=== PATIENT | male | born 1975 | race Caucasian/White ===

== ENCOUNTER 2017-06-22 14:05 | Emergency (ER) | payer MEDICAID ==
[~2017-06-22] VITALS: Ht 157.5 cm; Wt 98.1 kg
[2017-06-22 14:08] VITALS: BP 117/70
[2017-06-22] MEDS ORDERED: NEOMYCIN/POLYMYXIN/BACITRACIN 0.9 GM/1 PKT TP ONE (14:25)
[2017-06-22] MEDS ORDERED: LIDOCAINE 1% 500 MG/50 ML VIAL INJ ONE (14:25)
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
[2017-06-22] MEDS ORDERED: LIDOCAINE 1% ED 50 ML ONE (14:43)
[2017-06-22 14:55] VITALS: BP 120/73
--- NOTE | 2017-06-22 14:55 | NUR ---
Patient discharged with v/s stable. Written and verbal after care instructions given and explained. Patient alert, oriented and verbalized understanding of instructions. Ambulatory with steady gait. All questions addressed prior to discharge. ID band removed. Patient advised to follow up with PMD. Rx of IBU 800 MG given. Patient educated on indication of medication including possible reaction and side effects. Opportunity to ask questions provided and answered.
== END 2017-06-22 14:45 | disposition home or self-care (01) ==
LOC: MED 14:05
DX: S61.412A Laceration without foreign body of left hand, initial encounter (principal); X58.XXXA Exposure to other specified factors, initial encounter; Y93.89 Activity, other specified; Y92.89 Other specified places as the place of occurrence of the external cause; Y99.8 Other external cause status
CPT/HCPCS: 12001; 90471; 90715; 99283; J2001

== ENCOUNTER 2019-07-12 17:39 | Emergency (ER) | payer SELFPAY ==
[~2019-07-12] VITALS: Ht 154.9 cm; Wt 95.3 kg
[2019-07-12 17:44] VITALS: BP 139/90
[2019-07-12] MEDS ORDERED: KETOROLAC 60 MG/2 ML VIAL IM ONE (17:55)
[2019-07-12] MEDS ORDERED: MORPHINE SULFATE 4 MG/ML SYR IM ONE (19:05)
[2019-07-12 19:32] VITALS: BP 120/77
== END 2019-07-12 19:32 | disposition home or self-care (01) ==
LOC: MED 17:39
DX: S00.03XA Contusion of scalp, initial encounter (principal); M54.5 Low back pain; Z98.890 Other specified postprocedural states; W19.XXXA Unspecified fall, initial encounter; Y93.89 Activity, other specified; Y92.89 Other specified places as the place of occurrence of the external cause; Y99.8 Other external cause status
CPT/HCPCS: 96372; 99283; J1885; J2270

== ENCOUNTER 2019-08-01 20:50 | Emergency (ER) | payer OTHER ==
[~2019-08-01] VITALS: Ht 154.9 cm; Wt 104.9 kg
[2019-08-01 21:00] VITALS: BP 132/80
--- NOTE | 2019-08-01 21:03 | NUR ---
TO LOBBY A/W BED AMBULATORY WITH CANE
--- NOTE | 2019-08-01 22:23 | NUR ---
PT AMBULATED TO ER BED 03
--- NOTE | 2019-08-01 22:52 | NUR ---
SITTING UP IN BED WITH FRIEND SITTING AT BEDSIDE. PT STATES PAIN IS TOLERABLE AT THIS TIME AND IS MORE CONCERNED ABOUT GETTING MEDICATIONS REFILLED.
[2019-08-01 23:15] VITALS: BP 118/61
--- NOTE | 2019-08-01 23:15 | NUR ---
Patient discharged with v/s stable. Written and verbal after care instructions given and explained. Patient alert, oriented and verbalized understanding of instructions. Ambulatory with cane assistance. All questions addressed prior to discharge. ID band removed. Patient advised to follow up with PMD. Rx of Motrin and Tramadol and Zofran given. Patient educated on indication of medication including possible reaction and side effects. Opportunity to ask questions provided and answered.
== END 2019-08-02 04:12 | disposition home or self-care (01) ==
LOC: MED 20:50
DX: S09.90XA Unspecified injury of head, initial encounter (principal); V89.9XXA Person injured in unspecified vehicle accident, initial encounter; Y93.89 Activity, other specified; Y92.89 Other specified places as the place of occurrence of the external cause; Y99.8 Other external cause status
CPT/HCPCS: 70450; 99284

== ENCOUNTER 2022-04-29 09:53 | Emergency (ER) | payer SELFPAY ==
[~2022-04-29] VITALS: Ht 152.4 cm; Wt 103.9 kg
[2022-04-29 10:28] VITALS: BP 116/70
--- NOTE | 2022-04-29 10:30 | NUR ---
PT AMBULATED WITH STEADY GAIT TO THE [facility]
--- NOTE | 2022-04-29 11:14 | NUR ---
ESTHELA BLACKWOOD IN TRIAGE FOR EVAL
--- NOTE | 2022-04-29 11:18 | NUR ---
PT AMBULATED TO BED 12
--- NOTE | 2022-04-29 11:35 | NUR ---
46/M PRESENTS TO ED WITH C/O UMBILICAL PAIN, PATIENT REPORTS HAVING UMBILLICAL HERNIA FOR "YEARS" BUT STATES HE FEELS THE PAIN HAS WORSENED IN THE LAST TWO WEEKS. PATIENT DENIES RECENT INJURY OR TRAUMA, DENIES FEVERS, CHILLS, N/V/D.
[2022-04-29] MEDS ORDERED: BACI1PAC6 TP (11:57)
[2022-04-29 12:13] VITALS: BP 116/70
--- NOTE | 2022-04-29 12:14 | NUR ---
Patient discharged with v/s stable. Written and verbal after care instructions ABOUT CELLULITIS AND UMBILICAL HERNIA given and explained. Patient alert, oriented and verbalized understanding of instructions. Ambulatory with steady gait. All questions addressed prior to discharge. ID band removed. Patient advised to follow up with PMD. Rx of BACITRACIN given. Patient educated on indication of medication including possible reaction and side effects. Opportunity to ask questions provided and answered.
== END 2022-04-29 12:14 | disposition home or self-care (01) ==
LOC: MED 09:53
DX: L03.316 Cellulitis of umbilicus (principal); K42.9 Umbilical hernia without obstruction or gangrene; Z79.899 Other long term (current) drug therapy
CPT/HCPCS: 99282